=== PATIENT | female | born 1950 | race Caucasian/White ===

== ENCOUNTER 2016-06-17 20:06 | Emergency (ER) | payer OTHER ==
--- NOTE | 2016-06-17 20:46 | DIAGNOSTIC IMAGING REPORT ---
PROCEDURE: XR CHEST 2 VIEW INDICATION: FEVER TECHNIQUE: PA and lateral view. COMPARISON: None. FINDINGS: Lungs are clear. Heart size and mediastinum are normal. Tortuous aorta. Mild degenerative changes of the spine. IMPRESSION: 1. No acute changes.
--- NOTE | 2016-06-17 21:43 | ED ORDER SUMMARY ---
..... Patient: ROSALINDA LAIRD OrderSheet [facility] VisitID: [id number] [place] [address] 66y, F Registration Date/Time: 06/17/2016 ORDER SHEET Weight: 74.8 kg (stated) Allergies: Codeine, Dilantin, Motrin GENERAL ORDERS: Chest 2V Urgent (20:20 06/17/2016 EKoroleva P.A.-C) (Ack 20:23 CHagerty ER Dental Hygiene Instructor) (20:33 MCampbell) Deckhand Fishing Vessel (Continuous) (20:20 06/17/2016 EKoroleva P.A.-C) (Ack 20:23 CHagerty ER Dental Hygiene Instructor) (21:09 DDean R.N.) Cardiac Panel Stat (20:20 06/17/2016 EKoroleva P.A.-C) (Ack 20:23 CHagerty ER Dental Hygiene Instructor) (21:09 DDean R.N.) EKG - ER Stat (20:20 06/17/2016 EKoroleva P.A.-C) (Ack 20:23 CHagerty ER Dental Hygiene Instructor) (20:54 CHagerty ER Dental Hygiene Instructor) Ethyl Alcohol Urgent (20:21 06/17/2016 EKoroleva P.A.-C) (Ack 20:23 CHagerty ER Dental Hygiene Instructor) (21:09 DDean R.N.) MEDICATION ORDERS: IV FLUIDS: IV Saline Lock (20:20 06/17/2016 EKoroleva P.A.-C) (Ack 20:30 DDean R.N.) (21:10 DDean R.N.) ORDER SHEET NOTES: [Electronically signed by Leila Brown PTrippATripp-C (22:11 06/17/2016)] [Electronically signed by Tarah Melara R.N. (12:06 06/18/2016)] [Electronically locked/signed by Tarah Melara R.N. (12:06 06/18/2016)]
--- NOTE | 2016-06-17 21:43 | ED NURSING NOTES ---
Clinical Report - Nurses [facility] [address] [place] [address] 06/17/2016 20:08 Patient: ROSALINDA LAIRD TRIAGE Triage time 2014. Acuity: LEVEL 3. Chief Complaint: (pt c/o tight , dry cough and chest tightness/congestion onset this afternoon). 20:15. --20:24 Tarah Melara R.N. 20:14 06/17/16. BP: 180/103. HR: 103. RR: 22. O2 saturation: 98%. Temp: 98.2 F. Pain level now: 05/08. Additional comments: 1 = chest pressure, 3=- back pain . --20:24 Tarah Melara R.N. Weight: 74.8 kg stated. Height/Length: 68 inches Per Patient. BMI: 25.1. --20:19 Tarah Melara R.N. Medications AcetaZOLAMIDE Oral 250 mg, 2x a day. Combigan Ophthalmic (Solution 0.2-0.5 %) 1 drop, 12 hours. Irbesartan Oral 300 mg, daily. --20:27 Tarah Melara R.N. Allergies Codeine. Dilantin. --20:28 Tarah Melara R.N. Motrin. --20:29 Taarh Melara R.N. History Arrived by EMS. Historian: patient. Accompanied by spouse. Primary physician (melody). Onset. (this afternoon). She has had a cough and chest pain. 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 PAST MEDICAL HX: ( elevated liver function tests, changes in vision states she had 2 small spots on her lung 2 years ago). SOCIAL HX: Smoker- current status unknown (quit smoking 25 yeras ago was a 2ppd smoker for 20 years). Occasional alcohol use. --20:24 Tarah Melara R.N. PROBLEMS: Seizure. Hyperlipidemia. Hepatomegaly . HTN. --20:23 Tarah Melara R.N. ADDITIONAL SURGERIES: Appendectomy. --20:23 Tarah Melara R.N. Interventions ID band on patient. To treatment room. --20:24 Tarah Melara R.N. PHYSICAL ASSESSMENT 20:15. To room via stretcher. Patient gowned. GENERAL / NEURO / PSYCH: Alert. Oriented X 4. Appears in no acute distress. RESPIRATORY: Mild respiratory distress. The patient can speak in full sentences. Cough. Chest wall tenderness. CVS: Capillary refill less than 2 seconds. GI / : Abdomen soft. SKIN: Skin is warm and dry. --20:19 Tarah Melara R.N. NURSING PROGRESS NOTES 20:15. Patient gowned. Head of bed elevated. Reassurance given. Patient identifiers checked. Call light placed in reach. Side rails up. Bed placed in lowest position. Patient ready for evaluation- chart flagged. --20:19 Tarah Melara R.N. 20:25 06/17/16. Patient transported to radiology by stretcher with tech. --20:25 Tarah Melara R.N. 20:35 06/17/16. Patient returned from radiology by stretcher with tech. --20:35 Tarah Melara R.N. EKG time: (2040). EKG was ordered, performed by a tech and shown to the ED physician. --20:47 Adalberto Avalos, ER Electrocardiographic Technician 21:00 06/17/16. BP: 119/72. HR: 68. RR: 18. O2 saturation: 99%. Pain level now: 03/10. --21:09 Tarah Melara R.N. 20:40 06/17/2016 Site #1 started via IV in the right antecubital space with an 20g angiocath, with aseptic technique and good blood return. Blood drawn: rainbow set. Labeled in the presence of the patient and sent to the lab. Saline lock flushed with 10 mL saline. --21:10 Tarah Melara R.N. 21:55 06/17/2016 Site #1 removed upon discharge. Bandaid applied. --22:00 Tarah Melara R.N. 21:55 06/17/2016 IV Saline Lock Drip IV Discontinued: bag #1 STOPPED upon discharge. Total amount infused: 0 mL. IV patency established. IV site checked: no pain, redness, or swelling. IV flushed thoroughly. --22:00 Tarah Melara R.N. DISPOSITION / DISCHARGE 21:45. Condition at departure: unchanged and stable. No learning barriers present. Discharge instructions provided and reviewed with the patient and spouse. Reviewed medication(s) (OTC cough syrup, claritin). Patient and spouse verbalized understanding. Written instructions provided in Mongolian. The patient was discharged home and accompanied by spouse. She left the Emergency Department via private vehicle. --21:59 Tarah Melara R.N. 21:45 06/17/16. BP: 130/93. HR: 68. RR: 18. O2 saturation: 99% on room air. Temp: deferred. Pain level now: 03/10. --21:59 Tarah Melara R.N. Locked/Released at 06/18/2016 12:06 by Tarah Melara R.N.
--- NOTE | 2016-06-17 21:43 | ED ORDER SUMMARY ---
..... Patient: ROSALINDA LAIRD OrderSheet [facility] VisitID: [id number] [place] [address] 66y, F Registration Date/Time: 06/17/2016 ORDER SHEET Weight: 74.8 kg (stated) Allergies: Codeine, Dilantin, Motrin GENERAL ORDERS: Chest 2V Urgent (20:20 06/17/2016 EKoroleva P.A.-C) (Ack 20:23 CHagerty ER Hosiery Knitter) (20:33 MCampbell) Fur Feeder (Continuous) (20:20 06/17/2016 EKoroleva P.A.-C) (Ack 20:23 CHagerty ER Hosiery Knitter) (21:09 DDean R.N.) Cardiac Panel Stat (20:20 06/17/2016 EKoroleva P.A.-C) (Ack 20:23 CHagerty ER Hosiery Knitter) (21:09 DDean R.N.) EKG - ER Stat (20:20 06/17/2016 EKoroleva P.A.-C) (Ack 20:23 CHagerty ER Hosiery Knitter) (20:54 CHagerty ER Hosiery Knitter) Ethyl Alcohol Urgent (20:21 06/17/2016 EKoroleva P.A.-C) (Ack 20:23 CHagerty ER Hosiery Knitter) (21:09 DDean R.N.) MEDICATION ORDERS: IV FLUIDS: IV Saline Lock (20:20 06/17/2016 EKoroleva P.A.-C) (Ack 20:30 DDean R.N.) (21:10 DDean R.N.) ORDER SHEET NOTES: [Electronically signed by Leila Brown PTrippATripp-C (22:11 06/17/2016)] [Electronically signed by Tarah Melara R.N. (12:06 06/18/2016)] [Electronically locked/signed by Tarah Melara R.N. (12:06 06/18/2016)]
--- NOTE | 2016-06-17 21:43 | ED CLINICAL REPORT ---
Clinical Report - Physicians/Mid Levels [facility] [address] [place] [address] 06/17/2016 20:08 Patient: ROSALINDA LAIRD Time Seen: 20:49 Jun 17 2016. Arrived- By ambulance. Historian- EMS personnel (SO). HISTORY OF PRESENT ILLNESS Chief Complaint: COUGH. Is still present (improving). The patient has had a cough. No difficulty breathing, chest discomfort, fever, muscle aches or chills. No nasal congestion or sinus pressure. Additional history - No known contact with a sick individual. No recent travel. (Patient reports cough and discomfort over the last few hours, since this afternoon. Denies any pain. Denies any shortness of breath. Denies any recent fevers. Denies productive nature. Patient reports drinking today. Denies history of heart problems. Denies history of PE. She denies any chest pain. Denies any emesis. The cough was not exacerbated by any new eating. Deniesossicle aspiration. Patient has been drinking today.). REVIEW OF SYSTEMS No vomiting. All systems otherwise negative, except as recorded above. PAST HISTORY Problems: Seizure. Hyperlipidemia. Hepatomegaly . HTN. Additional Surgeries: Appendectomy. Medications: AcetaZOLAMIDE Oral 250 mg, 2x a day. Combigan Ophthalmic (Solution 0.2-0.5 %) 1 drop, 12 hours. Irbesartan Oral 300 mg, daily. Allergies: Codeine. Dilantin. Motrin. SOCIAL HISTORY Smoker- current status unknown (former, quit > 20 years). Alcohol use. (prior to arrival). ADDITIONAL NOTES The nursing notes have been reviewed. PHYSICAL EXAM Vital Signs: 06/17/2016 20:14 BP: 180/103. HR: 103. RR: 22. O2 saturation: 98%. Temp: 98.2 F. Pain level now: 3/10. Appearance: Alert. No apparent distress. (etoh on odor). Eyes: Eyes normal inspection. ENT: Pharynx normal. Uvula midline. Neck: Normal inspection. Neck supple. CVS: Normal heart rate and rhythm. Heart sounds normal. Respiratory: No respiratory distress. Breath sounds normal. No accessory muscle use. Abdomen: Soft and nontender. No rebound tenderness. Neuro: Oriented X 3. LABS, X-RAYS, AND EKG EKG: EKG time: (2040). No acute process. Rate: 79. Normal P waves. Normal SHOAIB. Normal ST and T waves and QT. EKG unchanged when compared with prior EKG. (august/2011). Chest X-ray: (IMPRESSION: 1. No acute changes. Electronically Final signed by:Laci Moon MD 06/17/2016 8:45:58 PM). Laboratory Tests: CBC w Diff: (LALO: 06/17/2016 20:40) ( [facility] 06/17/2016 21:12) Final results Test Result Flag Units (Reference) WHITE BLOOD COUNT 7.8 K/uL (4.5-11.5) RED BLOOD COUNT 3.43 L M/uL (4.00-5.20) HEMOGLOBIN 11.8 L gm/dL (12.0-16.0) HEMATOCRIT 35.1 L % (36.0-46.0) MEAN CELL VOLUME 103 H fL (80-100) MEAN CORPUSCULAR HGB 34 pg (26-34) MEAN CORPUSCULAR HGB CONC 33 g/dL (31-37) RED CELL DISTRIBUTION WIDTH 15.0 H % (11.6-14.8) PLATELET COUNT 211 K/uL (150-400) NEUTROPHIL % 32.7 L % (50-75) LYMPH % 52.3 H % (25-40) MONO % 6.2 % (3-14) EOSINOPHIL % 6.9 H % (0-4) BASOPHIL % 1.9 % (0-2) Ethyl Alcohol: (LALO: 06/17/2016 20:40) ( [facility] 06/17/2016 21:19) Final results Test Result Flag Units (Reference) ETHYL ALCOHOL 295 H mg/dL (3-10) CHEM 13 PANEL: (LALO: 06/17/2016 20:40) ( MsgRcvd 06/17/2016 21:18) Final results Test Result Flag Units (Reference) GLUCOSE 116 H mg/dL (70-110) BUN 12 mg/dL (7-18) CREATININE 0.8 mg/dL (0.6-1.3) Estimated GFR >60 mL/min Estimated GFR- >60 mL/min Note: Persistent reduction over 3 months in eGFR<60 mL/min/1.73 m2 defines CKD. Patients with eGFR values>=60 mL/min/1.73 m2 may also have CKD if evidence ofpersistent proteinuria. Additional information may be foundat www.kidney.org. SODIUM 139 mmol/L (136-145) POTASSIUM 3.5 mmol/L (3.5-5.1) CHLORIDE 107 mmol/L (98-107) CARBON DIOXIDE 21 mmol/L (21-32) CALCIUM 8.7 mg/dL (8.5-10.1) TOTAL PROTEIN 8.1 g/dL (6.4-8.2) ALBUMIN 3.8 g/dL (3.3-5.0) BILIRUBIN, TOTAL 0.6 mg/dL (0.0-1.0) ALKALINE PHOSPHATASE 134 H U/L (46-116) AST (SGOT) 98 H U/L (15-37) ALT (SGPT) 45 U/L (12-78) MAGNESIUM 1.8 mg/dL (1.8-2.4) CPK 155 U/L (24-260) TROPONIN I <0.05 L ng/mL (0.00-1.5) TROPONIN REFERENCE RANGE:<0.1 NEGATIVE0.1-1.5 INDETERMINANT>1.5 POSITIVE . PROGRESS AND PROCEDURES Course of Care: Patient has no complaints. No further coughing in the ER. Chest x-ray unremarkable here in the ER EKG is unremarkable. Cardiac workup is unremarkable. Patient wants to go home, I find this reasonable she has no further complaints. 06/17/2016 21:45 BP: 130/93. HR: 68. RR: 18. O2 saturation: 99%. Pain level now: 03/10. Patient is stable. Symptoms better. Patient/family counseled. Differential Diagnosis: I considered viral bronchitis, bacterial bronchitis, bacterial pneumonia, mycoplasmal bronchitis, chlamydial bronchitis, bronchospasm and pulmonary embolism as a possible cause of cough in this patient. This is a partial list of diagnoses considered. Disposition: Discharged. Condition: good. CLINICAL IMPRESSION Acute upper respiratory infection. INSTRUCTIONS Drink plenty of fluids. Your Current Medications: CONTINUE TAKING THE FOLLOWING MEDICATIONS: AcetaZOLAMIDE Oral : 250 mg 2x a day. Combigan Ophthalmic : Solution 0.2-0.5 %, 1 drop 12 hours. Irbesartan Oral : 300 mg daily. Follow-up: Follow up with your doctor in three days. (Electronically signed by Leila Brown P.A.-C 06/17/2016 22:11)
--- NOTE | 2016-06-17 21:43 | ED CLINICAL REPORT ---
Clinical Report - Physicians/Mid Levels [facility] [address] [place] [address] 06/17/2016 20:08 Patient: ROSALINDA LAIRD Time Seen: 20:49 Jun 17 2016. Arrived- By ambulance. Historian- EMS personnel (SO). HISTORY OF PRESENT ILLNESS Chief Complaint: COUGH. Is still present (improving). The patient has had a cough. No difficulty breathing, chest discomfort, fever, muscle aches or chills. No nasal congestion or sinus pressure. Additional history - No known contact with a sick individual. No recent travel. (Patient reports cough and discomfort over the last few hours, since this afternoon. Denies any pain. Denies any shortness of breath. Denies any recent fevers. Denies productive nature. Patient reports drinking today. Denies history of heart problems. Denies history of PE. She denies any chest pain. Denies any emesis. The cough was not exacerbated by any new eating. Deniesossicle aspiration. Patient has been drinking today.). REVIEW OF SYSTEMS No vomiting. All systems otherwise negative, except as recorded above. PAST HISTORY Problems: Seizure. Hyperlipidemia. Hepatomegaly . HTN. Additional Surgeries: Appendectomy. Medications: AcetaZOLAMIDE Oral 250 mg, 2x a day. Combigan Ophthalmic (Solution 0.2-0.5 %) 1 drop, 12 hours. Irbesartan Oral 300 mg, daily. Allergies: Codeine. Dilantin. Motrin. SOCIAL HISTORY Smoker- current status unknown (former, quit > 20 years). Alcohol use. (prior to arrival). ADDITIONAL NOTES The nursing notes have been reviewed. PHYSICAL EXAM Vital Signs: 06/17/2016 20:14 BP: 180/103. HR: 103. RR: 22. O2 saturation: 98%. Temp: 98.2 F. Pain level now: 3/10. Appearance: Alert. No apparent distress. (etoh on odor). Eyes: Eyes normal inspection. ENT: Pharynx normal. Uvula midline. Neck: Normal inspection. Neck supple. CVS: Normal heart rate and rhythm. Heart sounds normal. Respiratory: No respiratory distress. Breath sounds normal. No accessory muscle use. Abdomen: Soft and nontender. No rebound tenderness. Neuro: Oriented X 3. LABS, X-RAYS, AND EKG EKG: EKG time: (2040). No acute process. Rate: 79. Normal P waves. Normal SHOAIB. Normal ST and T waves and QT. EKG unchanged when compared with prior EKG. (august/2011). Chest X-ray: (IMPRESSION: 1. No acute changes. Electronically Final signed by:Laci Moon MD 06/17/2016 8:45:58 PM). Laboratory Tests: CBC w Diff: (ALLO: 06/17/2016 20:40) ( [facility] 06/17/2016 21:12) Final results Test Result Flag Units (Reference) WHITE BLOOD COUNT 7.8 K/uL (4.5-11.5) RED BLOOD COUNT 3.43 L M/uL (4.00-5.20) HEMOGLOBIN 11.8 L gm/dL (12.0-16.0) HEMATOCRIT 35.1 L % (36.0-46.0) MEAN CELL VOLUME 103 H fL (80-100) MEAN CORPUSCULAR HGB 34 pg (26-34) MEAN CORPUSCULAR HGB CONC 33 g/dL (31-37) RED CELL DISTRIBUTION WIDTH 15.0 H % (11.6-14.8) PLATELET COUNT 211 K/uL (150-400) NEUTROPHIL % 32.7 L % (50-75) LYMPH % 52.3 H % (25-40) MONO % 6.2 % (3-14) EOSINOPHIL % 6.9 H % (0-4) BASOPHIL % 1.9 % (0-2) Ethyl Alcohol: (LALO: 06/17/2016 20:40) ( [facility] 06/17/2016 21:19) Final results Test Result Flag Units (Reference) ETHYL ALCOHOL 295 H mg/dL (3-10) CHEM 13 PANEL: (LALO: 06/17/2016 20:40) ( MsgRcvd 06/17/2016 21:18) Final results Test Result Flag Units (Reference) GLUCOSE 116 H mg/dL (70-110) BUN 12 mg/dL (7-18) CREATININE 0.8 mg/dL (0.6-1.3) Estimated GFR >60 mL/min Estimated GFR- >60 mL/min Note: Persistent reduction over 3 months in eGFR<60 mL/min/1.73 m2 defines CKD. Patients with eGFR values>=60 mL/min/1.73 m2 may also have CKD if evidence ofpersistent proteinuria. Additional information may be foundat www.kidney.org. SODIUM 139 mmol/L (136-145) POTASSIUM 3.5 mmol/L (3.5-5.1) CHLORIDE 107 mmol/L (98-107) CARBON DIOXIDE 21 mmol/L (21-32) CALCIUM 8.7 mg/dL (8.5-10.1) TOTAL PROTEIN 8.1 g/dL (6.4-8.2) ALBUMIN 3.8 g/dL (3.3-5.0) BILIRUBIN, TOTAL 0.6 mg/dL (0.0-1.0) ALKALINE PHOSPHATASE 134 H U/L (46-116) AST (SGOT) 98 H U/L (15-37) ALT (SGPT) 45 U/L (12-78) MAGNESIUM 1.8 mg/dL (1.8-2.4) CPK 155 U/L (24-260) TROPONIN I <0.05 L ng/mL (0.00-1.5) TROPONIN REFERENCE RANGE:<0.1 NEGATIVE0.1-1.5 INDETERMINANT>1.5 POSITIVE . PROGRESS AND PROCEDURES Course of Care: Patient has no complaints. No further coughing in the ER. Chest x-ray unremarkable here in the ER EKG is unremarkable. Cardiac workup is unremarkable. Patient wants to go home, I find this reasonable she has no further complaints. 06/17/2016 21:45 BP: 130/93. HR: 68. RR: 18. O2 saturation: 99%. Pain level now: 03/10. Patient is stable. Symptoms better. Patient/family counseled. Differential Diagnosis: I considered viral bronchitis, bacterial bronchitis, bacterial pneumonia, mycoplasmal bronchitis, chlamydial bronchitis, bronchospasm and pulmonary embolism as a possible cause of cough in this patient. This is a partial list of diagnoses considered. Disposition: Discharged. Condition: good. CLINICAL IMPRESSION Acute upper respiratory infection. INSTRUCTIONS Drink plenty of fluids. Your Current Medications: CONTINUE TAKING THE FOLLOWING MEDICATIONS: AcetaZOLAMIDE Oral : 250 mg 2x a day. Combigan Ophthalmic : Solution 0.2-0.5 %, 1 drop 12 hours. Irbesartan Oral : 300 mg daily. Follow-up: Follow up with your doctor in three days. (Electronically signed by Leila Brown P.A.-C 06/17/2016 22:11)
--- NOTE | 2016-06-18 12:06 | ED DISCHARGE INSTRUCTIONS ---
Patient: ROSALINDA LAIRD General Instructions [facility] VisitID: [id number] [place] [address] 66y, F Registration Date/Time: 06/17/2016 Acute upper respiratory infection. INSTRUCTIONS Drink plenty of fluids. Your Current Medications: CONTINUE TAKING THE FOLLOWING MEDICATIONS: AcetaZOLAMIDE Oral : 250 mg 2x a day. Combigan Ophthalmic : Solution 0.2-0.5 %, 1 drop 12 hours. Irbesartan Oral : 300 mg daily. Follow-up: Follow up with your doctor in three days. ADDITIONAL INFORMATION Viral Respiratory Illness [Adult] You have an Upper Respiratory Illness (URI) caused by a virus. This illness is contagious during the first few days. It is spread through the air by coughing and sneezing or by direct contact (touching the sick person and then touching your own eyes, nose or mouth). Most viral illnesses go away within 7-10 days with rest and simple home remedies. Sometimes, the illness may last for several weeks. Antibiotics will not kill a virus and are generally not prescribed for this condition. Home Care: 1) If symptoms are severe, rest at home for the first 2-3 days. When you resume activity, don't let yourself get too tired. 2) Avoid being exposed to cigarette smoke (yours or others). 3) Tylenol (acetaminophen) or ibuprofen (Advil, Motrin) will help fever, muscle aching and headache. (Persons under 18 with fever should not take aspirin since this may cause liver damage.) 4) Your appetite may be poor, so a light diet is fine. Avoid dehydration by drinking 6-8 glasses of fluids per day (water, soft drinks, juices, tea, soup). Extra fluids will help loosen secretions in the nose and lungs. 5) [id number] cold medicines will not shorten the length of time youre sick, but they may be helpful for the following symptoms: cough (Robitussin DM); sore throat (Chloraseptic lozenges or spray); nasal and sinus congestion (Actifed, Sudafed, Chlortrimeton). Follow Up with your doctor or as advised if you dont improve over the next week. Get Prompt Medical Attention if any of the following occur: -- Cough with lots of colored sputum (mucus) or blood in your sputum -- Chest pain, shortness of breath, wheezing or have trouble breathing -- Severe headache; face, neck or ear pain -- Fever over 100.4 F (38.0 C) for more than three days -- You cant swallow due to throat pain Alcohol Intoxication Alcohol intoxication occurs when you drink alcohol faster than your liver can remove it from your system. Alcohol intoxication affects your judgment and coordination. Very high blood alcohol levels can cause coma, very slow breathing and even . If you drink alcohol every day, this may gradually cause permanent damage to your liver, brain, heart, pancreas and other organs. Alcohol use during may cause permanent damage to the growing baby. Home Care: Do not drink any more alcohol. DO NOT DRIVE until all effects of the alcohol have worn off. Get lots of rest over the next few days. Drink plenty of water and other non-alcoholic liquids. Try to eat regular meals. If you have been drinking heavily on a daily basis, you may go through alcohol withdrawl. This is also called the shakes or DTs. The usual symptoms last 3 to 4 days and may include nervousness, shakiness, nausea, sweating or sleeplessness. During this time, it is best that you stay with family or friends who can help and support you. You can also admit yourself to a residential detox program. If your symptoms are severe, contact your doctor for medicines to help. Follow Up: If alcohol is causing a problem in your life, these and other organizations can help you: Alcoholics Anonymous offers support through a self-help fellowship. There are no dues or fees. See the Yellow Pages and call for time and place of meetings. www.aa.org Al-Anon offers support to families of alcohol users. 818.163.8791 www.al-anon.org [employer] 441-831-5082 www.ncadd.org There are also inpatient or residential alcohol detox programs. Check the Internet or phonebook Yellow Pages under Drug Abuse & Treatment Centers. Get Prompt Medical Attention if any of the following occur: there) You have been given the following additional information: Uri, Viral, No Abx (Adult) Alcohol Intoxication (Electronically signed by Leila Brown P.A.-C 06/17/2016 22:11)
--- NOTE | 2016-06-18 12:06 | ED MED RECONCILIATION SUMMARY ---
Patient: ROSALINDA LAIRD Medication Reconciliation Report [facility] VisitID: [id number] [address] [place] [address] 66y, F Registration Date/Time: 06/17/2016 Weight: 74.8 kg Height/Length: 68 in. BMI: 25.1 ALLERGIES: Codeine, Dilantin, Motrin The patient's Home Medications are listed below: CONTINUE TAKING THE FOLLOWING MEDICATIONS: AcetaZOLAMIDE Oral 250 mg, 2x a day Combigan Ophthalmic (0.2-0.5 %) 1 drop, 12 hours Irbesartan Oral 300 mg, daily The source(s) of the original Home Medication information: Not obtained. The following Medications were given to the patient in the Emergency Department: None. The following Medications were prescribed to the patient: None.
--- NOTE | 2016-06-18 12:06 | ED MED RECONCILIATION SUMMARY ---
Patient: ROSALINDA LAIRD Medication Reconciliation Report [facility] VisitID: [id number] [address] [place] [address] 66y, F Registration Date/Time: 06/17/2016 Weight: 74.8 kg Height/Length: 68 in. BMI: 25.1 ALLERGIES: Codeine, Dilantin, Motrin The patient's Home Medications are listed below: CONTINUE TAKING THE FOLLOWING MEDICATIONS: AcetaZOLAMIDE Oral 250 mg, 2x a day Combigan Ophthalmic (0.2-0.5 %) 1 drop, 12 hours Irbesartan Oral 300 mg, daily The source(s) of the original Home Medication information: Not obtained. The following Medications were given to the patient in the Emergency Department: None. The following Medications were prescribed to the patient: None.
--- NOTE | 2016-06-18 12:06 | ED MAR SUMMARY ---
..... Medication Administration Record [facility] [address] [place], [place] [id number] Patient: ROSALINDA LAIRD Visit ID: [id number] 66y, F Weight: 74.8 kg Height/Length: 68 in BMI: 25.1 ALLERGIES: Motrin, Dilantin, Codeine
--- NOTE | 2016-06-18 12:06 | ED MAR SUMMARY ---
..... Medication Administration Record [facility] [address], [place] [id number] Patient: ROSALINDA LAIRD Visit ID: [id number] 66y, F Weight: 74.8 kg Height/Length: 68 in BMI: 25.1 ALLERGIES: Motrin, Dilantin, Codeine
== END 2016-06-17 21:58 | disposition home or self-care (01) ==
LOC: ED SRH 20:06
DX: J06.9 Acute upper respiratory infection, unspecified (principal); I10 Essential (primary) hypertension; E78.5 Hyperlipidemia, unspecified; Z87.891 Personal history of nicotine dependence; Z79.899 Other long term (current) drug therapy; Z88.5 Allergy status to narcotic agent; Z88.8 Allergy status to other drugs, medicaments and biological substances
CPT/HCPCS: 90100; 90616; 92010; 92610; 92720; 95059